=== PATIENT | male | born 1985 | race Caucasian/White ===

== ENCOUNTER 2022-10-10 07:28 | Emergency (ER) | payer BC ==
[2022-10-10 07:37] VITALS: BP 116/70; PULSE 70; RESP 20; TEMP 98.5; BMI 20.5
== END 2022-10-10 08:34 | disposition home or self-care (01) ==
LOC: JERFT 07:28
DX: M79.632 Pain in left forearm (principal)
CPT/HCPCS: 73090-TC-LT-FY; 73110-TC-LT-FY; 99284-25